=== PATIENT | male | born 1960 | race Hispanic/Latino ===

== ENCOUNTER → 2021-09-09 | Day surgery (SDC) | payer OTHER ==
[~2021-09-09] MED LIST: AMLODIPINE BESYL5 MG PO; CARVEDILOL12.5 MG PO; HYDROCHLOROTHIA25 MG PO; JANUMET 50-1,01 EACH; LIDOCAINE HCL 2% LOCAL INJ 5 ML SDV VIAL INJ ONE; METOCLOPRAMIDE HCL 10 MG/2ML VIAL ONE; MIDAZOLAM HCL 2 MG/2 ML VIAL ONE; OMEPRAZOLE40 MG PO; PROPOFOL IV EMULSION 10 MG/ML 20 ML VIAL ONE; VICODIN HP 10-1 EAC1 PO
[2021-09-09 11:15] VITALS: BP 117/78
== END | disposition home or self-care (01) ==
LOC: OR 08:03
PROVIDERS: ATTEND Internal Medicine Gastroenterology
DX: K29.50 Unspecified chronic gastritis without bleeding (principal); B96.81 Helicobacter pylori [H. pylori] as the cause of diseases classified elsewhere; K22.10 Ulcer of esophagus without bleeding; K21.9 Gastro-esophageal reflux disease without esophagitis; K22.89 Other specified disease of esophagus; E11.9 Type 2 diabetes mellitus without complications; I10 Essential (primary) hypertension; M19.90 Unspecified osteoarthritis, unspecified site; Z79.84 Long term (current) use of oral hypoglycemic drugs; Z79.899 Other long term (current) drug therapy; Z86.16 Personal history of COVID-19
CPT/HCPCS: 36415; 43239; 82948; C9113; J2001; J2250; J2704; J2765